=== PATIENT | male | born 1985 | race Caucasian/White ===

== ENCOUNTER 2018-12-30 18:08 | Emergency (ER) | payer SELFPAY ==
[2018-12-30 18:33] LABS: ABSOLUTE BASOPHILS # (AUTO) 0.1 10^3/uL (0.0-0.2); ABSOLUTE EOSINOPHILS # (AUTO) 0.1 10^3/uL (0.0-0.6); ABSOLUTE LYMPHOCYTES (AUTO) 2.6 10^3/uL (0.5-4.7); ABSOLUTE MONOCYTES (AUTO) 0.6 10^3/uL (0.1-1.4); ABSOLUTE NEUT (AUTO) 5.7 10^3/uL (1.7-8.2); BASOPHILS % (AUTO) 1.2 % (0-2); EOSINOPHILS % (AUTO) 1.6 % (0-6); HEMATOCRIT 46.5 % (37.9-51.0); HEMOGLOBIN 16.2 g/dL (13.5-17.0); LYMPHOCYTES % (AUTO) 28.8 % (13-45); MEAN CORPUSCULAR HEMOGLOBIN 31.5 pg (27.0-33.4); MEAN CORPUSCULAR HGB CONC 34.9 g/dL (32.0-36.0); MEAN CORPUSCULAR VOLUME 90 fl (80-97); MONOCYTES % (AUTO) 6.4 % (3-13); PLATELET COUNT 303 10^3/uL (150-450); RED BLOOD COUNT 5.14 10^6/uL (4.35-5.55); RED CELL DISTRIBUTION WIDTH 15.7 % (11.5-14.0); TOTAL CELLS COUNTED % (AUTO) 100 %; WHITE BLOOD COUNT 9.2 10^3/uL (4.0-10.5)
[2018-12-30 19:03] LABS: ALANINE AMINOTRANSFERASE 48 U/L (21-72); ALBUMIN 4.4 g/dL (3.5-5.0); ALCOHOL 292 mg/dL (NONE DETECTED); ALKALINE PHOSPHATASE 128 U/L (38-126); ANION GAP 10 (5-19); ASPARTATE AMINO TRANSFERASE 28 U/L (17-59); BILIRUBIN,DIRECT 0.3 mg/dL (0.0-0.4); BILIRUBIN,TOTAL 0.4 mg/dL (0.2-1.3); BLOOD UREA NITROGEN 4 mg/dL (7-20); CALCIUM 9.2 mg/dL (8.4-10.2); CARBON DIOXIDE 27 mmol/L (22-30); CHLORIDE 109 mmol/L (98-107); GLUCOSE 100 mg/dL (75-110); POTASSIUM 3.8 mmol/L (3.6-5.0); SODIUM 146.1 mmol/L (137-145); TOTAL PROTEIN 7.4 g/dL (6.3-8.2)
--- NOTE | 2018-12-30 19:20 | ER Document Report ---
ED General - General Chief Complaint: ETOH Abuse Stated Complaint: POSSIBLE SEIZURE Time Seen by Provider: 12/30/18 18:59 Notes: Patient is a 33-year-old male with a past medical history of alcoholism, history of alcohol withdrawal seizures, presents with complaints of having had an alcohol withdrawal seizure. Patient states that this is very typical for him when he tries to stop drinking alcohol. Shortly after arrival the patient began asking to leave the emergency department. He denies any symptoms at the time of my assessment. States that he is trying to quit drinking but is not ready to completely stop at this time. Does not wish to remain in the emergency department for monitoring or withdrawal assistance. States he will follow-up with his general physician. He is contacting a sober ride to take him home. TRAVEL OUTSIDE OF THE [place] IN LAST 30 DAYS: No - Related Data Allergies/Adverse Reactions: No Known Allergies Allergy (Verified 12/30/18 18:13) Past Medical History - General Information source: Patient - Social History Smoking Status: Current Every Day Smoker Chew tobacco use (# tins/day): No Frequency of alcohol use: Heavy Drug Abuse: None Lives with: Spouse/Significant other Family History: Reviewed & Not Pertinent Patient has suicidal ideation: No Patient has homicidal ideation: No Renal/ Medical History: Denies: Hx Peritoneal Dialysis Psychiatric Medical History: Reports: Hx Depression - anxiety Past Surgical History: Reports: Hx Orthopedic Surgery - left shoulder Review of Systems - Review of Systems Notes: Constitutional: Negative for fever. HENT: Negative for sore throat. Eyes: Negative for visual changes. Cardiovascular: Negative for chest pain. Respiratory: Negative for shortness of breath. Gastrointestinal: Negative for abdominal pain, vomiting or diarrhea. Genitourinary: Negative for dysuria. Musculoskeletal: Negative for back pain. Skin: Negative for rash. Neurological: Negative for headaches, weakness or numbness. Positive for seizure 10 point ROS negative except as marked above and in HPI. Physical Exam - Vital signs Vitals: Temp Resp Pulse Ox 98.1 F 17 95 12/30/18 18:12 12/30/18 18:12 12/30/18 18:12 Interpretation: Normal Notes: PHYSICAL EXAMINATION: GENERAL: Well-appearing, well-nourished and in no acute distress. HEAD: Atraumatic, normocephalic. EYES: Pupils equal round and reactive to light, extraocular movements intact, sclera anicteric, conjunctiva are normal. ENT: nares patent, oropharynx clear without exudates. Moist mucous membranes. NECK: Normal range of motion, supple without lymphadenopathy LUNGS: Breath sounds clear to auscultation bilaterally and equal. No wheezes rales or rhonchi. HEART: Regular rate and rhythm without murmurs ABDOMEN: Soft, nontender, normoactive bowel sounds. No guarding, no rebound. No masses appreciated. EXTREMITIES: Normal range of motion, no pitting or edema. No cyanosis. NEUROLOGICAL: Face symmetric. Tongue protrudes midline. Extraocular motions intact. Pupils are 2 mm and equally reactive. Normal speech, normal gait. 5 out of 5 strength in both the distal and proximal upper and lower extremities bilaterally. Sensation is grossly intact throughout. Finger to nose testing normal. Pronator drift normal. PSYCH: Clinically sober, normal mood, normal affect. SKIN: Warm, Dry, normal turgor, no rashes or lesions noted. Course - Re-evaluation Re-evalutation: 12/30/18 19:15 Patient presents with an alcohol withdrawal seizure. At the time of my evaluation the patient denies any acute complaints. He is able to walk in a straight line, hold a clear conversation with me, and does not appear clinically intoxicated. The patient has chosen to leave the facility against medical advice. The relevant issues have been reviewed and discussed with the patient. At the time of this assessment there is no indication for involuntary commitment. The patient is alert, oriented, and able to express clearly their reasoning for not wanting to remain in the emergency department for further treatment. The patient is not clinically psychotic, and denies suicidal ideation. Although the patient's alcohol level is elevated to 292, the patient is a chronic alcoholic, and has already had a withdrawal seizure despite an elevated alcohol level clearly indicating that his baseline alcohol level is much higher than 292. He is clinically sober able to tell me the month, year, [employer] of [employer], current events, and is able to understand why he is here in the emergency department. I do not believe the patient meets grounds to hold him here involuntarily Differential or suspected diagnoses based on medical screening exam: Alcohol withdrawal seizures, alcohol abuse The patient is aware of the concerning diagnoses and acknowledges understanding of the reasons for the following recommendations: Remaining in the emergency department, medically treating alcohol withdrawal, offering resources for rehab The following recommendations/services were offered and refused: The following risks were explained: Additional alcohol withdrawal seizures, status epilepticus, , permanent disability, loss of function Clinical impression: Patient is competent to make decisions regarding the medical that is being offered. He has a sober ride to take him home. - Vital Signs Vital signs: Temp Pulse Resp BP Pulse Ox 98.1 F 17 95 12/30/18 18:12 12/30/18 18:12 12/30/18 18:12 - Laboratory Result Diagrams: 12/30/18 18:15 12/30/18 18:15 Laboratory results interpreted by me: 12/30/18 12/30/18 18:15 18:15 RDW 15.7 H Sodium 146.1 H Chloride 109 H BUN 4 L Alkaline Phosphatase 128 H Discharge - Discharge Clinical Impression: Alcoholism Alcohol withdrawal seizure Qualifiers: Complication of substance-induced condition: with unspecified complication Qualified Code(s): F10.239 - Alcohol dependence with withdrawal, unspecified; R56.9 - Unspecified convulsions Condition: Serious Disposition: AGAINST MEDICAL ADVICE Additional Instructions: Your she is in to leave the hospital today AGAINST MEDICAL ADVICE. Although you are sober enough to make this decision, I strongly advise you to remain in the hospital to monitor your symptoms and ensure that you do not have additional seizures. We would also offer treatment to prevent additional seizures. You have elected to leave despite this recommendation. Please understand that you are welcome to return to the emergency department at any time.
--- NOTE | 2018-12-31 00:32 | EKG REPORT ---
SEVERITY:- BORDERLINE ECG - SINUS TACHYCARDIA LEFT AXIS DEVIATION CONSIDER ANTERIOR INFARCT : Confirmed by: Vaughn Zuniga 31-Dec-2018 00:31:59
== END 2018-12-30 19:25 | disposition left against medical advice (07) ==
LOC: ER 18:08
DX: F10.239 Alcohol dependence with withdrawal, unspecified (principal); R56.9 Unspecified convulsions; F17.200 Nicotine dependence, unspecified, uncomplicated
CPT/HCPCS: 36415; 80053; 80307; 83735; 85025; 93005; 93010; 99285